=== PATIENT | female | born 2005 | race Caucasian/White ===

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

== ENCOUNTER 2023-02-12 11:26 | Emergency (ER) | payer OTHER, SELFPAY ==
[2023-02-12 11:41] VITALS: BP 109/72; PULSE 91; RESP 16; TEMP 37; O2SAT 99
--- NOTE | 2023-02-12 11:56 | ED.GENADULT ---
HPI - General Adult General Chief complaint: Back Pain/Injury Stated complaint: Back pain;Nausea Time Seen by Provider: 02/12/23 11:35 Source: patient and RN notes reviewed Mode of arrival: ambulatory Limitations: no limitations History of Present Illness HPI narrative: Patient presents today complaining of right-sided back pain since yesterday morning. She was at work when it started. Denies injury, trauma, heavy lifting. Denies numbness or tingling in the extremities. Denies radiation of the pain. Two days ago, patient had some urinary symptoms to include dysuria and difficulty initiating a urine stream, but states these symptoms have resolved. Yesterday she states she had some lower abdominal cramping and 5 episodes of vomiting. States these symptoms have since resolved. Denies any nausea today and has been eating and drinking appropriately. She currently rates her right-sided back pain 3/10 and has been using ibuprofen and a heating pad with some mild relief. She has been off of her control pills for the past month. Related Data Allergies Allergy/AdvReac Type Severity Reaction Status Date / Time amoxicillin Allergy Hives Verified 02/12/23 11:58 Review of Systems Review of Systems: CONSTITUTIONAL: Denies body aches, fever, chills, or sweats. EYES: Denies visual changes, redness, or discharge. ENT: Denies rhinorrhea, congestion, sore throat, or otalgia. CARDIOVASCULAR: Denies chest pain, palpitations, or edema. RESPIRATORY: Denies cough or dyspnea. GASTROINTESTINAL: Denies abdominal pain, nausea, vomiting, or diarrhea. GENITOURINARY: Denies dysuria or hematuria. SKIN: Denies rash, itching, or wounds. MUSCULOSKELETAL: Denies joint pain, or myalgia.+ right back pain NEUROLOGIC: Denies headache, numbness, tingling, or weakness. PSYCH: Denies depression or anxiety. [facility] Family History Family History Mother Breast cancer Social History Social History Smoking status: Never smoker Comments At time of signature, I have reviewed and agree with nursing past medical, surgical, social and family history unless otherwise noted. Please see nursing chart for further information. There is no relevant family history pertinent to the presenting complaint Exam Narrative: GENERAL: Well-appearing, well-nourished, and in no acute distress. HEAD: Normocephalic, atraumatic. EYES: EOMI. No redness or drainage. Conjunctivae normal. ENT: Mucous membranes pink and moist. NECK: Normal AROM. CHEST: No respiratory distress. Clear to auscultation. HEART: Regular rate and rhythm. No murmur appreciated. Normal peripheral pulses. ABDOMEN: Soft, nontender, nondistended, normal active bowel sounds.+ right CVAT MUSCULOSKELETAL: No bony tenderness of the spine. No tenderness of the left side of the back. No tenderness to the right lumbar spine or cervical spine. Patient does have tenderness of the right thoracic spine. EXTREMITIES: Normal range of motion. No edema. SKIN: Warm, dry, no rash. Capillary refill normal. Normal skin turgor. NEURO: No focal deficits. Alert and oriented x3. Gait steady. PSYCH: Normal affect. No signs of depression or anxiety. Course Course Level of Care: Express Care Visit Vital Signs Vital signs: Vital Signs Temperature 98.6 F 02/12/23 11:41 Pulse Rate 91 02/12/23 11:41 Respiratory Rate 16 02/12/23 11:41 Blood Pressure 109/72 02/12/23 11:41 Pulse Oximetry 99 02/12/23 11:41 Temperature 98.6 F 02/12/23 11:41 Pulse Rate 91 02/12/23 11:41 Respiratory Rate 16 02/12/23 11:41 Blood Pressure 109/72 02/12/23 11:41 Pulse Oximetry 99 02/12/23 11:41 Reviewed Medical Decision Making MDM Narrative Medical decision making narrative: Urinalysis is positive for UTI. Based on patient's UA and symptoms, she has been diagnosed with pyel
== END 2023-02-12 12:12 | disposition home or self-care (01) ==
PROVIDERS: Emergency Provider Nurse Practitioner
DX: N12 Tubulo-interstitial nephritis, not specified as acute or chronic (principal)
CPT/HCPCS: 81003; 81025; 87077; 87086; 87186; 99213; G0463

== ENCOUNTER 2023-12-25 11:07 | Emergency (ER) | payer OTHER, SELFPAY ==
[2023-12-25 11:26] VITALS: BP 115/67; PULSE 71; RESP 16; TEMP 37; O2SAT 100
--- NOTE | 2023-12-25 11:30 | ED.URI ---
HPI - URI/Sore Throat General Chief Complaint: Upper Respiratory Infection Stated Complaint: sorethroat,nausea Time Seen by Provider: 12/25/23 11:20 Source: patient Mode of arrival: ambulatory Limitations: no limitations History of Present Illness HPI Narrative: patient presents with complaints of sore throat and nausea that began suddenly yesterday. She denies any runny nose or cough. She is afebrile. She took some Pepto-Bismol for nausea, has not taken anything for her throat pain. She is able to manage her own secretions. Does report decreased appetite. Related Data Home Medications Medication Instructions Recorded Confirmed escitalopram oxalate 10 mg tablet 10 mg PO DAILY 12/25/23 12/25/23 norethindrone 1 mg-ethinyl 1 tablet PO DAILY 12/25/23 12/25/23 estradiol 20 mcg (21)-iron 75 mg (7) tablet (Blisovi Fe 07/21 (28)) Allergies Allergy/AdvReac Type Severity Reaction Status Date / Time amoxicillin AdvReac Mild Hives Verified 12/25/23 11:20 Review of Systems Review of Systems: All systems reviewed & are unremarkable except as noted in HPI and below Constitutional: Constitutional: Reports no additional constitutional complaints ENT: Reports system reviewed and no additional complaints, except as documented Cardiovascular: Cardiovascular: Reports no additional cardiovascular complaints Respiratory: Respiratory: Reports no additional respiratory complaints Gastrointestinal: Gastrointestinal: Reports no additional gastrointestinal complaints [facility] Family History Family History Mother Breast cancer Social History Social History Smoking status: Never smoker Comments At the time of my signature, I reviewed and agree with the nursing past medical, surgical, social, and family history. There is no relevant family history pertinent to the patient complaint. Exam Const: General: cooperative, no acute distress, alert and awake Orientation/consciousness: oriented to person, oriented to place and oriented to time HENMT: Head: normal to inspection Ears: external ears normal and TM's normal bilaterally Face/Nose/Sinus: Normal external nose present and no nasal discharge noted Throat: uvula midline and abnormal tonsil bilateral erythema, exudates and hypertrophy Neck: Lymphatic: lymphadenopathy bilateral submandibular Resp: Effort & Inspection: normal respiratory effort and able to speak in complete sentences Auscultation: clear to auscultation bilaterally, no crackles, no rales, no rhonchi and no wheezes Cardio: Palpation: normal PMI Rate: regular rate Rhythm: regular rhythm Heart sounds: S1 normal heart sound present and S2 normal heart sound present GI: GI Palp: Yes Soft to palpation, No Tenderness to palpation present (GI) and No Guarding due to palpation present (GI) Auscultation: normal bowel sounds Neuro: General: oriented to person, oriented to place and oriented to time Cranial nerves: Yes CN's II-XII intact bilaterally Psych: Appearance: grossly normal Thought process: Normal thought process present Insight: Good insight present (Psych) Judgement: Good judgement present (Psych) Course Course Level of Care: Express Care Visit Vital Signs Vital signs: Vital Signs Temperature 98.6 F 12/25/23 11:26 Pulse Rate 71 12/25/23 11:26 Respiratory Rate 16 12/25/23 11:26 Blood Pressure 115/67 12/25/23 11:26 Pulse Oximetry 100 12/25/23 11:26 Oxygen Delivery Room Air 12/25/23 11:26 Temperature 98.6 F 12/25/23 11:26 Pulse Rate 71 12/25/23 11:26 Respiratory Rate 16 12/25/23 11:26 Blood Pressure 115/67 12/25/23 11:26 Pulse Oximetry 100 12/25/23 11:26 Oxygen Delivery Room Air 12/25/23 11:26 Reviewed MDM - URI/Sore Throat MDM Narrative Medical decision making narrative: Patient nontoxic appearing, able to manage her own secretion
== END 2023-12-25 11:51 | disposition home or self-care (01) ==
PROVIDERS: Emergency Provider Nurse Practitioner Family
DX: J02.0 Streptococcal pharyngitis (principal); F41.9 Anxiety disorder, unspecified; F32.A Depression, unspecified; Z86.16 Personal history of COVID-19
CPT/HCPCS: 87880; 99213; G0463

== ENCOUNTER 2024-04-26 15:14 | Emergency (ER) | payer OTHER, SELFPAY ==
[2024-04-26 15:22] VITALS: BP 122/55; PULSE 77; RESP 18; TEMP 36.8; O2SAT 100
--- NOTE | 2024-04-26 15:23 | ED.GENADULT ---
HPI - General Adult General Chief complaint: Nausea/Vomiting/Diarrhea Stated complaint: nauseous Time Seen by Provider: 04/26/24 15:24 Source: patient Mode of arrival: ambulatory Limitations: no limitations History of Present Illness HPI narrative: 18-year-old female patient presents to the [facility] with complaints of severe nausea and headaches for past 2-3 days. Patient states she recently changed her control to a patch called xulanestela. colleague states her last period was about a week ago. Denies any vomiting diarrhea. Denies abdominal pain. Denies any fevers, body aches or chills. Denies any chest pain, shortness breath, cough, sore throat or ear pain. Patient states that she is sexually active and could be . Related Data Home Medications Medication Instructions Recorded Confirmed escitalopram oxalate 10 mg tablet 10 mg PO DAILY 12/25/23 04/26/24 norelgestromin 150 mcg-e.estradiol 1 patch WEEKLY 04/26/24 04/26/24 35 mcg/24 hr weekly transderm patch (Xulanmariluz) Allergies Allergy/AdvReac Type Severity Reaction Status Date / Time amoxicillin Allergy Mild Hives Verified 04/26/24 15:24 Review of Systems Review of Systems: CONSTITUTIONAL: Denies fever, chills, or sweats. EYES: Denies visual changes, redness, or discharge. ENT: Denies rhinorrhea, congestion, sore throat, or otalgia. CARDIOVASCULAR: Denies chest pain, palpitations, or edema. RESPIRATORY: Denies cough or dyspnea. GASTROINTESTINAL: Denies abdominal pain, Positive nausea, denies vomiting, or diarrhea. GENITOURINARY: Denies dysuria or hematuria. SKIN: Denies rash or itching. MUSCULOSKELETAL: Denies back pain, joint pain, or myalgia. NEUROLOGIC: Denies headache, numbness, or weakness. PSYCHIATRIC: Denies anxiety or depression. [facility] Family History Family History Mother Breast cancer Social History Social History Smoking status: Never smoker Comments At the time of my signature I agree with nursing past medical history, surgical, social, and family history. There is no relevant family history pertinent to the presenting complaint. Exam Narrative: GENERAL: Well-appearing, well-nourished, and in no acute distress. HEAD: Normocephalic, atraumatic. EYES: PERRLA and EOMI. ENT: Nares clear, no rhinorrhea or epistaxis. Mucous membranes moist. NECK: Supple. No lymphadenopathy CHEST: Clear to auscultation. No respiratory distress. HEART: Regular rate and rhythm. No murmur heard. Normal peripheral pulses. ABDOMEN: Soft, flat, nondistended. No guarding, rebound tenderness, or rigid. No pulsatilla masses. hyperactive Bowel sounds present in all four quadrants. No organomegaly. Negative Trinh?s sign. No periumbicial tenderness. No Supra public tenderness or distension. Good femoral pulses bilaterally. No hernia noted. No scars or surface trauma. EXTREMITIES: Normal range of motion. No edema. SKIN: Warm, dry, no rash. NEURO: No focal deficits. Alert and oriented x3. Course Course Level of Care: Express Care Visit Vital Signs Vital signs: Vital Signs Temperature 36.8 C 04/26/24 15:22 Pulse Rate 77 04/26/24 15:22 Respiratory Rate 18 04/26/24 15:22 Blood Pressure 122/55 L 04/26/24 15:22 Pulse Oximetry 100 04/26/24 15:22 Oxygen Delivery Room Air 04/26/24 15:22 Temperature 36.8 C 04/26/24 15:25 Pulse Rate 77 04/26/24 15:25 Respiratory Rate 18 04/26/24 15:25 Blood Pressure 122/55 L 04/26/24 15:25 Pulse Oximetry 100 04/26/24 15:25 Oxygen Delivery Room Air 04/26/24 15:25 Vital signs reviewed. Medical Decision Making MDM Narrative Medical decision making narrative: plan care patient is to check for to rule out cause for nausea. If negative most likely will discharge home with some Zofran and recommend to stop patches that is causing severe side effects and call her doctor on Sunday. If patient chooses to participate in sexual activity highly recommend that they use a condom. Patient verbalized understanding at this time. Differential Diagnosis Differential Diagnosis: Differential diagnosis: Appendicitis, ovarian torsion, gallbladder disease, ovarian torsion, pancreatitis, lower lobe pneumonia,AAA, AMI or ACS, DKA, diverticulitis. Vital Signs Vital Signs: Vital Signs Temperature 36.8 C 04/26/24 15:22 Pulse Rate 77 04/26/24 15:22 Respiratory Rate 18 04/26/24 15:22 Blood Pressure 122/55 L 04/26/24 15:22 Pulse Oximetry 100 04/26/24 15:22 Oxygen Delivery Room Air 04/26/24 15:22 Temperature 36.8 C 04/26/24 15:25 Pulse Rate 77 04/26/24 15:25 Respiratory Rate 18 04/26/24 15:25 Blood Pressure 122/55 L 04/26/24 15:25 Pulse Oximetry 100 04/26/24 15:25 Oxygen Delivery Room Air 04/26/24 15:25 Critical Care Time Critical Care Time Critical Care Time: No Discharge Plan Discharge Clinical Impression: Nausea, Medication side effect Patient Disposition: Home, Self-Care Condition: Stable Instructions: Antibiotic Form, Acute Nausea and Vomiting (ED) Additional Instructions: take medication to help with nausea symptoms. If you choose to discontinue the control patch please make sure your wearing a condom if he participate in any sexual activity. Please call your doctor that prescribes the medication to discuss alternative options or to discuss side effects. Prescriptions: New ondansetron 4 mg tablet,disintegrating 4 mg PO Q8H PRN (Reason: nausea and vomiting) 5 Days Qty: 15 0RF No Action escitalopram oxalate 10 mg tablet 10 mg PO DAILY norelgestromin-ethin.estradiol [Xulane] 150-35 mcg/24 hr patch weekly 1 patch WEEKLY Follow-up/Referrals: Jayson,Sabino Hall [Other] Time of Disposition: 15:45
[2024-04-26 15:25] VITALS: BP 122/55; PULSE 77; RESP 18; TEMP 36.8; O2SAT 100
[2024-04-26 15:46] LABS: BEDSIDEPREGUCG Negative (Negative)
== END 2024-04-26 15:49 | disposition home or self-care (01) ==
PROVIDERS: Emergency Provider Nurse Practitioner Family
DX: R11.0 Nausea (principal); Z76.0 Encounter for issue of repeat prescription
CPT/HCPCS: 81025; 99213; G0463

== ENCOUNTER 2024-08-07 10:28 | Emergency (ER) | payer OTHER, SELFPAY ==
--- NOTE | 2024-08-07 10:31 | ED.URI ---
HPI - URI/Sore Throat General Chief Complaint: Upper Respiratory Infection Stated Complaint: sore throat Time Seen by Provider: 08/07/24 10:30 Source: patient Mode of arrival: ambulatory Limitations: no limitations History of Present Illness HPI Narrative: Patient is a 18-year-old female who presents with 2 days of sore throat, headache, right ear pain, fatigue. Patient reports for body aches started last night. Denies any fever, chills, nausea, vomiting, diarrhea. Patient has taken Robitussin for symptoms but denies cough. Related Data Home Medications ?Medication ?Instructions ?Recorded ?Confirmed ?Last Taken ?Type escitalopram oxalate 10 mg tablet 10 mg PO DAILY 12/25/23 04/26/24 Unknown History etonogestrel 0.12 mg-ethinyl 1 vag ring vaginal ONCE 08/07/24 Unknown History estradiol 0.015 mg/24 hr vaginal ring (NuvaRing) Allergies Allergy/AdvReac Type Severity Reaction Status Date / Time amoxicillin Allergy Mild Hives Verified 08/07/24 10:53 Review of Systems Review of Systems: All systems reviewed & are unremarkable except as noted in HPI and below Constitutional: Constitutional: Reports body ache(s), Denies chills, Reports fatigue, Denies fever(s), Reports headache(s), Denies malaise and Denies weakness Eyes: Eyes: Denies blurry vision, Denies itchy eyes and Denies loss of vision ENT: Reports otalgia, Reports headache(s), Denies nasal congestion, Denies sinus pain and Reports sore throat Cardiovascular: Cardiovascular: Denies chest pain, Denies irregular heart rhythm and Denies dyspnea Respiratory: Respiratory: Denies cough and Denies dyspnea Gastrointestinal: Gastrointestinal: Denies abdominal pain, Denies diarrhea, Denies nausea and Denies vomiting Musculoskeletal: Musculoskeletal: Denies back pain, Reports myalgias and Denies arthralgias Integumentary/Breasts: Skin/Breast: Denies pruritus and Denies rash Neurologic: Reports headache(s), Denies loss of vision and Denies weakness Psychiatric: Psychiatric: Reports no additional psychiatric complaints Endocrine: Endocrine: Denies fatigue Allergic/Immunologic: Allergic/Immunologic: Denies itchy eyes PMFSH Family History Family History Mother Breast cancer Social History Social History Smoking status: Never smoker Comments At time of signature, agree with nursing past medical, surgical, social and family history. There is no relevant family history pertinent to the presenting complaint. Exam Const: General: cooperative, healthy appearing, comfortable, no acute distress and well nourished Nutritional Appearance: well nourished Orientation/consciousness: patient oriented x3 Limitations: no limitations HENMT: Head: normal to inspection, normocephalic and atraumatic Ears: hearing grossly normal bilaterally, external ears normal, TM's normal bilaterally, EAC's normal and no periauricular adenopathy Face/Nose/Sinus: Normal external nose present, Abnormal mucous membranes and turbinates present erythematous bilateral and diffuse, normal facial exam, sinuses nontender and face symmetric Face and sinus: normal facial exam, sinuses nontender and face symmetric Mouth: Yes Normal oral and palatal mucosa present, Yes lip normal, Yes tongue normal, Yes Normal salivary glands and ducts present, Yes oropharynx normal and Yes moist mucous membranes Teeth and gingiva: dentition normal Throat: uvula midline, abnormal tonsil bilateral erythema, hypertrophy 3+ and pitting and posterior oropharynx abnormal erythema Eyes: General: appearance normal, both eyes and all related structures Alignment and Position: alignment normal and position normal Periorbital: periorbital findings normal Eyelids: eyelids normal Pupils: Equal, round and reactive pupils present Neck: Neck: normal visual inspection, full ROM, no lymphadenopathy and supple Chest: Chest palpation & inspection: normal inspection of the chest and normal palpation of entire chest wall Resp: Effort & Inspection: normal respiratory effort and able to speak in complete sentences Auscultation: clear to auscultation bilaterally, no crackles, no rales, no rhonchi and no wheezes Cardio: Rate: regular rate Rhythm: regular rhythm Heart sounds: S1 normal heart sound present and S2 normal heart sound present GI: Inspection: normal to inspection Skin: General skin exam: normal color and no rashes or lesions noted Neuro: General: patient oriented x3 and moves all extremities Cranial nerves: Yes Equal, round and reactive pupils present Speech: normal speech Gait exam (Neuro): Normal gait present Extrem: General: normal to inspection, full ROM and no edema Psych: Appearance: grossly normal and well kempt Mental Status: mental status grossly normal Speech and movement: Normal speech and movement present Affect: normal affect Attitude: cooperative Thought process: Normal thought process present Course Course Emergency Course: Discharge instructions reviewed with patient, as well as provided in writing per nursing staff. The instructions also include specific and strict return/GO TO THE ER as well as f/u information. All questions have been answered, and the patient deny any further questions with discharge and discharge plan. Portions of this record may have been created with voice recognition software Level of Care: Express Care Visit Vital Signs Vital signs: Vital Signs Temperature 37.1 C 08/07/24 10:36 Pulse Rate 71 08/07/24 10:36 Respiratory Rate 18 08/07/24 10:36 Blood Pressure 118/57 L 08/07/24 10:36 Pulse Oximetry 100 08/07/24 10:36 Oxygen Delivery Room Air 08/07/24 10:36 Temperature 37.1 C 08/07/24 10:36 Pulse Rate 71 08/07/24 10:36 Respiratory Rate 18 08/07/24 10:36 Blood Pressure 118/57 L 08/07/24 10:36 Pulse Oximetry 100 08/07/24 10:36 Oxygen Delivery Room Air 08/07/24 10:36 Reviewed MDM - URI/Sore Throat MDM Narrative Medical decision making narrative: Pt well hydrated appearing, in no respiratory distress, hemodynamically stable. Recommend supportive care. The patient is stable at time of discharge the clinical impression was discussed and the patient was given the opportunity to ask questions, which were addressed as completely as possible given the information available at present. Anticipatory guidance and return to care precautions were discussed and the importance of primary care follow-up was stressed and encouraged. The patient voiced understanding of the plan, indications to return, and the need for follow-up. Differential diagnosis considered: Estrella virus, strep pharyngitis, allergic rhinitis, upper respiratory tract infection, sinusitis, rhinosinusitis, nasopharyngitis. viral pharyngitis, otitis media, otitis externa, otitis effusion, foreign body, cerumen impaction, viral syndrome, and influenza.? Exam findings show no acute concerns or changes; patient is non-toxic appearing and is in no distress.? Patient is appropriate for outpatient treatment and follow-up.? Medical Records Attestation: I reviewed the patient's medical records. Lab Data Attestation: I reviewed the patient's lab results. Labs: Lab Results 08/07/24 08/07/24 Range/Units 11:10 11:27 POC Influenza A Ag Negative (Negative) POC Influenza B Ag Negative (Negative) POC SARS CoV-2 Ag Negative (Negative) POC Grp A Strep Screen Negative (Negative) Discharge Plan Discharge Clinical Impression: Upper respiratory infection Qualifiers: URI type: unspecified viral URI Qualified Code(s): J06.9 - Acute upper respiratory infection, unspecified Patient Disposition: Home, Self-Care Condition: Stable Instructions: Upper Respiratory Infection (ED) Additional Instructions: Your rapid strep swab was negative today at [facility]. A throat culture will be sent to the laboratory for further testing. If the test is positive, you will receive a phone call within 48 hours and an appropriate antibiotic will be initiated at that time. Your Covid and flu are both negative Your symptoms are likely due to a viral illness, which is not treated with antibiotics. Viral symptoms can be present for up to a few weeks. -For pain/fever, you may take: Tylenol 650-1000mg by mouth every 4-6 hours. Do not exceed 4000mg in 24 hours. Advil (Ibuprofen) 600 mg by mouth every 6 hours. Do not exceed 2400mg in 24 hours. 8 AM: Tylenol 11 AM: Ibuprofen 2 PM: Tylenol 5 PM: Ibuprofen 8 PM: Tylenol 11 PM: Ibuprofen 2 AM: Tylenol 5 AM: Ibuprofen -Antihistamine medication such as Benadryl/Zyrtec at night and Claritin/Kennedi during the day can help improve symptoms. -Use Flonase twice a day for 5 days then daily to help reduce the inflammation and dry up your sinuses. -You can also use Sudafed behind the pharmacy counter(12 or 24 hour). Be sure to drink plenty of water with these medications at least 8 ounces with every dose and it is important to drink 8 to 10 glasses of water per day. Water is a natural decongestant -Eat and drink things that are easy to swallow, like tea or soup, or popsicles. -Oral rinses such as: Salt water gargles and/or may use topical anesthetic (eg. Chloraseptic spray) or lozenges to relieve dryness or throat pain). -Frequent hand washing or hand pipe layer is one of the best ways to prevent spread of infection. -Using a vaporizer or humidifier at night will also help thin secretions and help with coughing up phlegm. -Follow up with primary care provider in 3-5 days if condition is not improving - For new or worsening symptoms go directly to the nearest ER Patient Language: Spanish Prescriptions: New fluticasone propionate [Flonase Allergy Relief] 50 mcg/actuation spray,suspension 1 spray intranasal DAILY Qty: 16 0RF Rx Instructions: administer into each nostril No Action escitalopram oxalate 10 mg tablet 10 mg PO DAILY etonogestrel-ethinyl estradiol [NuvaRing] 0.12-0.015 mg/24 hr ring 1 vag ring vaginal ONCE Follow-up/Referrals: Jayson,Sabino Bryant [Other] - 3 Days Stand Alone Forms: Work/School Release IP Time of Disposition: 11:28
[2024-08-07 10:36] VITALS: BP 118/57; PULSE 71; RESP 18; TEMP 37.1; O2SAT 100
--- OUTSIDE RECORDS SUMMARY | 2024-08-07 10:52 | XMS_ITS | Clinical Summary ---
Author Organization [facility] Address [address] [place] [address] Care Team Providers Care Doctor Chiropractic Name Role Phone Cassy Espinal Primary Care Provider [phone]- [phone] Allergies Active Allergy Reactions Criticality Noted Date Comments Amoxicillin Hives Medium 02/26/2016 Medications escitalopram (LEXAPRO) 10 mg tablet Take 1 tablet (10 mg total) by mouth daily Active etonogestreL-et hinyl estradioL (NUVARING, ELURYNG) 0.12-0.015 mg/24 hr vaginal ring Insert vaginally and leave in place for 3 consecutive weeks, then remove for 1 week. 3 each 3 4 Active Active Problems No known active problems Medical History Medical History Date Comments Depression Family History Medical History Relation Name Comments Breast cancer Mother Relation Name Status Comments Mother Social History Tobacco Use Types Packs/Day Years Used Date Smoking Tobacco: Never Smokeless Tobacco: Never Tobacco Cessation:Counseling Given: Not Answered AUDIT-C Answer Date Recorded Q1: How often do you have a drink containing alc ohol? 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 Gender Identity Not on file Sexual Orientation Not on file Obstetrics History Para Term AB IAB SAB Ectopic Multiple Livin g Live Births 0 0 0 0 0 0 0 0 0 0 0 Last Filed Vital Signs Vital Sign Reading Time Taken Comments Blood Pressure 124/80 04/10/2024 2:38 PM CDT Pulse - - Temperature - - Respiratory Rate - - Oxygen Saturation - - Inhaled Oxygen Concentration - - Weight 71.8 kg (158 lb 4.8 oz) 04/10/2024 2:38 P M CDT Height 160 cm (5' 3 ) 04/10/2024 2:38 PM CDT Body Mass Index 28.04 04/10/2024 2:38 PM CDT Plan of Treatment Health Maintenance Due Date Last Done Comments Depression Screening 2003 Hepatitis C Screening 2003 Varicella Vaccines (1 of 2 - 13+ 2-dose series) 11/04/2016 HPV Vaccines (1 - 3-dose series) 11/04/2018 Meningococcal B Vaccine (1 o f 2 - Patient Seeks Protection) 2019 Hepatitis B Screening 11/04/2021 Influenza Vaccine (#1) 2024 DTaP/Tdap/Td Vaccine (2 - Td or Tdap) 01/27/2025 01/27/2015 Chlamydia and Gonorrhea (GC/ CT) Screening 04/10/2025 04/10/2024 Regular Well Visit/Exam 18-64 04/10/2025 04/10/2024 Meningococcal Vaccine Aged Out 01/27/2015 No [place] eligible based on patient's age to complete this topic Pneumococcal vaccine <65 Aged Out No longer eligible based on patient's age to complete this topic Procedures Procedure Name Priority Date/Time Associated Diagnosis Comments N. GONORRHOEAE/C. TRACHOMATIS AMPLIFICATION Routine 04/10/2024 4:27 AM CDT Screen for STD (sexually transmitted disease) from Last 3 Months or Most Recently Relevant to Health Maintenance Results * N. gonorrhoeae/C. trachomatis Amplification Urine (04/10/2024 4:27 AM CDT) C. trachomatis RNA Negative Negative [facility] - 01 N. gonorrhoeae RNA Negative Negative [facility] - 01 Urine (None) 04/10/2024 4:27 AM CDT 04/10/2024 Comment:UR Narrative [facility] - 04/11/2024 8:08 PM CDT Performed at: [address] [place] [address] Artur Mota [place] [id number] Reporting Consultant: Surekha Avila MD, Phone: [phone] Michelle Naylor MD LAB MICROBIOLOGY - GENERAL ORDERABLES Final Result [facility] - 01 from Last 3 Months or Most Recently Relevant to Health Maintenance Insurance [address] [place] [id number] [place] [address] [place]ALTH[place] [id number] [place] [address] HEALTHCARE O Care Teams Doctor Chiropractic Relationship Specialty Start Date End Date Cassy Espinal PA [address] [place] [phone] PCP - General Physician Forest Manager 06/23/21
--- OUTSIDE RECORDS SUMMARY | 2024-08-07 10:52 | XMS_ITS | Referral Summary ---
Author Organization [facility] Address [address] [place] [address] Care Team Providers Care Azure Architect Name Role Phone Cassy Espinal Primary Care Provider [phone]- [phone] Allergies Active Allergy Reactions Criticality Noted Date Comments Amoxicillin Hives Medium 02/26/2016 Medications escitalopram (LEXAPRO) 10 mg tablet Take 1 tablet (10 mg total) by mouth daily Active etonogestreL-et hinyl estradioL (NUVARING, ELURYNG) 0.12-0.015 mg/24 hr vaginal ring Insert vaginally and leave in place for 3 consecutive weeks, then remove for 1 week. 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 GONORRHOEAE/C. TRACHOMATIS AMPLIFICATION Routine 04/10/2024 4:27 AM CDT Screen for STD (sexually transmitted disease) from Last 3 Months or Most Recently Relevant to Health Maintenance Results * N. gonorrhoeae/C. trachomatis Amplification Urine (04/10/2024 4:27 AM CDT) Pathologist [facility] C. trachomatis RNA Negative Negative [facility] - 01 N. gonorrhoeae RNA Negative Negative [facility] - 01 Urine (None) 04/10/2024 4:27 AM CDT 04/10/2024 Comment:UR Narrative [facility] - 04/11/2024 8:08 PM CDT Performed at: [facility] [id number] Food Selector: Surekha Avila MD, Phone: [phone] Michelle Naylor MD LAB MICROBIOLOGY - GENERAL ORDERABLES Final Result [facility] - 01 from Last 3 Months or Most Recently Relevant to Health Maintenance Insurance [facility] Care Teams Azure Architect Relationship Specialty Start Date End Date Cassy Espinal PA [address] [place] [id number] PCP - General Physician Orthopaedic Surgeon 06/23/21
--- OUTSIDE RECORDS SUMMARY | 2024-08-07 10:52 | XMS_ITS | Patient Health Summary ---
Author Organization [facility] Address [address] [place] [address] Care Team Providers Care Machine Rug Cleaner Name Role Phone Sabino Tyler MD Primary Care Provider [phone] Note from [facility],non-owned Affiliates and Associated Physician Practices is amultiple site organization consisting of ambulatory clinics and hospital sitesin [place], [place], [place] and [place]. This disclosure is being madepursuant to the Care Everywhere program and may not contain all information available regarding this patient. Last updated 18.[facility] Allergies * Amoxicillin Medications * Be aware that medications may not be up to date on this document. Alwaysverify current medications with the patient. * Blisovi FE 07/21 1-20 MG-MCG tablet(Started 04/09/2023) Take 1 (one) tablet by mouth once daily * SUMAtriptan (Imitrex) 25 MG tablet(Started 06/04/2023) Take 1 tab by mouth once at first sign of migraine. May repeat one time after 2 hours if needed. 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 04/24/2023 Family history of breast cancer in mother 2022 Tension type headache 06/16/2015 04/24/2023 Eczema 01/27/2015 04/24/2023 Immunizations * MENINGOCOCCAL CONJUGATE (MCV4P)(Given 01/27/2015) * TDAP, HISTORIC VACCINE(Given 01/27/2015) Social History Tobacco Use Types Packs/Day Years Used Date Smoking Tobacco: Never Smokeless Tobacco: Never Tobacco Cessation:Counseling Given: Not Answered Comments:No passive smoke exposure Alcohol Use Standard Drinks/Week Comments No 0 (1 standard drink = 0.6 oz pur e alcohol) PHQ-2 Answer Date Recorded Patient Health Questionnaire-2 Score 2 08/06/2024 Sex and Gender Information Value Date Recorded Sex Assigned at Not on file Gender Identity Female 08/06/2024 11:57 AM RESEARCH AND DEVELOPMENT SPECIALIST Sexual Orientation Not on file Last Filed Vital Signs Vital Sign Reading Time Taken Comments Blood Pressure 111/70 11/16/2023 9:39 AM CDT Pulse 70 11/16/2023 9:39 AM CDT Temperature 36.9 C (98.4 F) 11/16/2023 9:39 AM CDT Respiratory Rate 16 07/28/2019 11:22 AM RESEARCH AND DEVELOPMENT SPECIALIST Oxygen Saturation 100% 11/16/2023 9:39 AM CDT Inhaled Oxygen Concentration - - Weight 69.9 kg (154 lb) 11/16/2023 9:39 AM CDT Height 157.5 cm (5' 2 ) 06/04/2023 10:53 AM RESEARCH AND DEVELOPMENT SPECIALIST Body Mass Index 28.17 06/04/2023 10:53 AM RESEARCH AND DEVELOPMENT SPECIALIST Procedures * STREP A SCREEN - POINT OF CARE (AMB) STL(Performed 07/28/2019) Performed for Influenza B * INFLUENZA A+B - POINT OF CARE (AMB)(Performed 07/28/2019) Performed for Influenza B * STREP A RAPID - POINT OF CARE (AMB) SLU(Performed 04/15/2015) Results * STREP A SCREEN - POINT OF CARE (AMB) STL (07/28/2019) Strep A Rapid POCT Negative Negative Strep A Internal Control Present Lot # [id number] Expiration Date 11/29/2020 Throat ENTIRE THROAT (SURFACE REGION OF NECK) / Unknown 07/28/2019 Aris Mckay [facility] - POINT OF CARE ORDERABLES * (ABNORMAL) INFLUENZA A+B - POINT OF CARE (AMB) (07/28/2019) Influenza A Antigen Rapid Negative Negative Influenza B Antigen Rapid Positive(A) Negative Influenza Internal Control positive NEGATIVE - POSITIVE Influenza Lot Number [id number] Influenza Expiration Date 03/25/2021 Other NASOPHARYNGEAL SWAB / Unknown 07/28/2019 Aris Mckay [facility] - POINT OF CARE ORDERABLES * STREP A CULTURE - POINT OF CARE (AMB) U (04/15/2015) Strep A Antigen positive [facility] Throat swab (specimen) 04/15/2015 Sophia Escalona MD LAB - POINT OF CARE ORDERABLES [facility] Care Teams Machine Rug Cleaner Relationship Specialty Start Date End Date Sabino Tyler MD [address] [facility] [address] [place] [address] PCP - General Family Medicine 06/04/23
--- OUTSIDE RECORDS SUMMARY | 2024-08-07 10:52 | XMS_ITS | Referral Summary ---
Author Organization [facility] Address [address] [place] [address] Care Team Providers Care Ehs Engineer Name Role Phone Sabino Tyler MD Primary Care Provider [phone] Source Comments [facility],non-[facility] Affiliates and Associated Physician Practices is amultiple site organization consisting of ambulatory clinics and hospital sitesin [place], [place], [place] and [place]. This disclosure is being madepursuant to the Care Everywhere program and may not contain all information available regarding this patient. Last updated 18.[facility] Encounters Date Type Department Care Team Description 08/06/2024 12:05 PM CATERING CHEF Video Visit [facility] Care [address] [place] [phone] Deisy Anna, SECURITY ANALYST-BACKGROUND CHECK COORDINATOR Referral of patient without examination or treatment 07/22/2024 Refill [facility] - Family Medicine [id number] [place] [phone] Sabino Tyler MD MEDICATION REFILL from Last 3 Months Allergies Active Allergy Reactions Criticality Noted Date Comments Amoxicillin 02/26/2016 Medications * Be aware that medications may not be up to date on this document. Alwaysverify current medications with the patient. Medication Sig Dispensed Refills Start Date End Date Status Blisovi FE 07/21 1-20 MG-MCG tablet Take 1 (one) tablet by mouth once daily 04/09/2023 Active SUMAtriptan (Imitrex) 25 MG tabletIndications: Migraine without aura and with status migrainosus, not intractable Take 1 tab by mouth once at first sign of migraine. May repeat one time after 2 hours if needed. 9 tablet 06/04/2023 Active escitalopram (Lexapro) 10 MG tabletIndications: Generalized anxiety disorder,Current severe episode of major depressive disorder without psychotic features without prior episode (HCC) Take 1 (one) tablet by mouth once daily 90 tablet 3 07/23/2024 07/18/2025 Active escitalopram (Lexapro) 10 MG tabletIndications: Generalized anxiety disorder,Current severe episode of major depressive disorder without psychotic features without prior episode (HCC) Take 1 (one) tablet by mouth once daily for 90 days 90 tablet 3 07/06/2023 07/22/2024 Discontinued (Reorder) Active Problems Problem Noted Date Diagnosed Date Seasonal allergies 04/24/2023 04/24/2023 Generalized anxiety disorder 04/24/2023 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 04/24/2023 Assessment & Plan (04/24/2023 10:29 AM CDT): - start sertraline 50mg daily - counseled pt on efficacy and potential side effects of sertraline - RTC 6 week f/u Family history of breast cancer in mother 2022 Assessment & Plan (04/24/2023 10:30 AM CDT): - pt declines genetic testing at this time - pt is followed by [facility]/ intent to begin breast imaging at age 23 Tension type headache 06/16/2015 04/24/2023 Overview (04/24/2023): Overview: Started age 8; about 2x/month Eczema 01/27/2015 04/24/2023 Immunizations Name Administration Dates Next Due MENINGOCOCCAL CONJUGATE (MCV4P) 01/27/2015 TDAP, HISTORIC VACCINE 01/27/2015 Social History Tobacco Use Types Packs/Day Years [...] file Gender Identity Female 08/06/2024 11:57 AM CATERING CHEF Sexual Orientation Not on file Last Filed Vital Signs Vital Sign Reading Time Taken Comments Blood Pressure 111/70 11/16/2023 9:39 AM CDT Pulse 70 11/16/2023 9:39 AM CDT Temperature 36.9 C (98.4 F) 11/16/2023 9:39 AM CDT Respiratory Rate 16 07/28/2019 11:22 AM CATERING CHEF Oxygen Saturation 100% 11/16/2023 9:39 AM CDT Inhaled Oxygen Concentration - - Weight 69.9 kg (154 lb) 11/16/2023 9:39 AM CDT Height 157.5 cm (5' 2 ) 06/04/2023 10:53 AM CATERING CHEF Body Mass Index 28.17 06/04/2023 10:53 AM CATERING CHEF Plan of Treatment Not on file Care Teams Ehs Engineer Relationship Specialty Start Date End Date Sabino Tyler MD [address] [facility] [address] [place] [phone] PCP - General Family Medicine 06/04/23
--- OUTSIDE RECORDS SUMMARY | 2024-08-07 10:52 | XMS_ITS | Clinical Summary ---
Author Organization [facility] Address [address] [place] [address] Care Team Providers Care Firer Bisque Kiln Name Role Phone Sabino Tyler MD Primary Care Provider [phone] Source Comments [facility],non-owned Affiliates and Associated Physician Practices is amultiple site organization consisting of ambulatory clinics and hospital sitesin [place], [place], [place] and [place]. This disclosure is being madepursuant to the Care Everywhere program and may not contain all information available regarding this patient. Last updated 18.[facility] Allergies Active Allergy Reactions Criticality Noted Date [...] this time - pt is followed by [facility] w/ intent to begin breast imaging at age 23 Tension type headache 06/16/2015 04/24/2023 Overview (04/24/2023): Overview: Started age 8; about 2x/month Eczema 01/27/2015 04/24/2023 Encounters Date Type Department Care Team Description 08/06/2024 12:05 PM FLOORWALKER Video Visit [facility] [employer] [address] [phone] Deisy Anna, PHARMACY TEACHER-PAPERHANGER PIPE Referral of patient without examination or treatment 07/22/2024 Refill [facility] - Family Medicine [address] [facility] [address] [place] [phone] Sabino Tyler MD MEDICATION REFILL from Last 3 Months Immunizations Name Administration Dates Next Due MENINGOCOCCAL CONJUGATE (MCV4P) 01/27/2015 TDAP, HISTORIC VACCINE 01/27/2015 Family History Medical History Relation Name Comments Cancer - Breast Mother ADD/ADHD Sister 1 Scleroderma Sister 1 ADD/ADHD Sister 2 Relation Name Status Comments Mother Sister 1 Sister 2 Alive Social History Tobacco Use Types Packs/Day Years [...] file Gender Identity Female 08/06/2024 11:57 AM FLOORWALKER Sexual Orientation Not on file Last Filed Vital Signs Vital Sign Reading Time Taken Comments Blood Pressure 111/70 11/16/2023 9:39 AM CDT Pulse 70 11/16/2023 9:39 AM CDT Temperature 36.9 C (98.4 F) 11/16/2023 9:39 AM CDT Respiratory Rate 16 07/28/2019 11:22 AM FLOORWALKER Oxygen Saturation 100% 11/16/2023 9:39 AM CDT Inhaled Oxygen Concentration - - Weight 69.9 kg (154 lb) 11/16/2023 9:39 AM CDT Height 157.5 cm (5' 2 ) 06/04/2023 10:53 AM FLOORWALKER Body Mass Index 28.17 06/04/2023 10:53 AM FLOORWALKER Plan of Treatment Health Maintenance Due Date Last Done Comments HIV SCREENING 11/04/2018 HPV VACCINE (1 - 3-dose series) 11/04/2018 MENINGOCOCCAL (Group B) VACCINE (1 of 2 - Standard) 2019 HEPATITIS C SCREENING 10/31/2021 HEPATITIS B VACCINE (1 of 3 - 19+ 3-dose series) 11/04/2022 COVID-19 VACCINE (1 - 2023-2 5 season) 2024 INFLUENZA VACCINE (#1) 2024 CHLAMYDIA/GONORRHEA SCREENING 04/09/2024 (Done Outside Per Report) DTAP/TDAP/TD VACCINES (2 - T d or Tdap) 01/27/2025 01/27/2015 ZOSTER VACCINE (1 of 2) 11/04/2053 MENINGOCOCCAL VACCINE Aged Out 01/27/2015 No [place] eligible based on patient's age to complete this topic DEPRESSION SCREENING Completed 08/06/2024, 07/06/2023, 04/24/2023 HIB VACCINE Aged Out No longer eligi ble based on patient's age to complete this topic PNEUMOCOCCAL VACCINE Aged Out No long er eligible based on patient's age to complete this topic Care Teams Firer Bisque Kiln Relationship Specialty Start Date End Date Sabino Tyler MD [id number] [place] [phone] PCP - General Family Medicine 06/04/23
--- OUTSIDE RECORDS SUMMARY | 2024-08-07 10:52 | XMS_ITS | Clinical Summary ---
Author Organization [facility] Address [address] [place] [address] Care Team Providers Care El Teacher Name Role Phone Unavailable Primary Care Provider Unavailabl e Social History Tobacco Use Types Packs/Day Years Used Date Smoking Tobacco: Never Assessed Comments Unknown Sex and Gender Information Value Date Recorded Sex Assigned at Not on file Legal Sex Female 7:48 PM CDT Gender Identity Not on file Sexual Orientation Not on file Last Filed Vital Signs Vital Sign Reading Time Taken Comments Blood Pressure 90/58 07/08/2012 7:47 AM BANQUET WAITER/WAITRESS Pulse 123 07/08/2012 7:47 AM BANQUET WAITER/WAITRESS Temperature - - Respiratory Rate - - Oxygen Saturation - - Inhaled Oxygen Concentration - - Weight 27.7 kg (61 lb) 07/08/2012 7:47 AM BANQUET WAITER/WAITRESS Height - - Body Mass Index - - Plan of Treatment Health Maintenance Due Date Last Done Comments Annual Physical 11/04/2006 HPV Vaccines (1 - 3-dose series) 11/04/2018 Meningococcal B Vaccine (1 o f 2 - Standard) 2019 Hepatitis C 11/04/2021 DTaP, Tdap and Td Vaccines ( 1 - Tdap) 11/04/2022 Hepatitis B Vaccines (1 of 3 - 19+ 3-dose series) 11/04/2022 COVID-19 Vaccine ( - 2023-2 5 season) 2024 Influenza Adult (#1) 2024 04/08/2012 Meningococcal Vaccine Aged Out No [place] eligible based on patient's age to complete this topic Pneumococcal Vaccine: Pediat rics (0 to 5 Years) and At-Risk Patients (6 to 64 Years) Aged Out No longer eligi ble based on patient's age to complete this topic RSV Immunizations Under 20 Months Aged Out No longer eligible based on patient's age to complete this topic
--- OUTSIDE RECORDS SUMMARY | 2024-08-07 10:52 | XMS_ITS | Encounter Summary ---
Author Organization [facility] [employer] Address [address] [place] [address] Care Team Providers Care Phone Technician Name Role Phone Sabino Tyler MD Primary Care Provider [phone] Reason for Visit * Reason Comments Sore Throat Congestion Encounter Details Date Type Department Care Team (Late st Contact Info) Description 08/06/2024 12:05 PM SUPERVISOR BUFFING AND PASTING Video Visit [facility] [employer] Care [address] [place] [phone] Deisy Anna APRN-CNP [address] [place] [address] Referral of patient without examination or treatment Social History Tobacco Use Types Packs/Day Years Used Date Smoking Tobacco: Never Smokeless Tobacco: Never Comments:No passive smoke ex posure Alcohol Use Standard Drinks/Week Comments No 0 (1 standard drink = 0.6 oz pur e alcohol) PHQ-2 Answer Date Recorded Patient Health Questionnaire-2 Score 2 08/06/2024 Sex and Gender Information Value Date Recorded Sex Assigned at Not on file Gender Identity Female 08/06/2024 11:57 AM SUPERVISOR BUFFING AND PASTING Sexual Orientation Not on file documented as of this encounter Progress Notes * Deisy Anna APRN-CNP - 08/06/2024 12:30 PM CST Henna Gavin is a 18 year old female with a has a past medical history of Generalized anxiety disorder and MDD (major depressive disorder). who presents with complaints today of new onset sore throat. Onset last night. Other sx: congestion, SHAH, ear pressure, sinus pressure. Siblings sick for 2 weeks with unknown illness. Pt concerned for strep. No fever, no exudate on exam. Recommend strep testing. Pt is not near [facility] clinics. Prefers to go [facility] in her area. Patient is referred out at this time. RVISOR BUFFING AND PASTING documented in this encounter Plan of Treatment Not on file documented as of this encounter Visit Diagnoses Diagnosis Referral of patient without examination or treatment- Primary documented in this encounter Care Teams Phone Technician Relationship Specialty Start Date End Date Sabino Tyler MD [phone] [place] [phone] PCP - General Family Medicine 06/04/23 documented as of this encounter
[2024-08-07 11:11] LABS: EDSTREPNEGPOS1 Negative (Negative)
[2024-08-07 11:29] LABS: EDCOVIDSCREEN Negative (Negative); EDINFLUASCREEN Negative (Negative); EDINFLUBSCREEN Negative (Negative)
== END 2024-08-07 11:58 | disposition home or self-care (01) ==
PROVIDERS: Emergency Provider Nurse Practitioner Family
DX: J06.9 Acute upper respiratory infection, unspecified (principal); Z20.822 Contact with and (suspected) exposure to COVID-19
CPT/HCPCS: 87081; 87426; 87804; 87880; 99213; G0463